=== PATIENT | female | born 1950 | race Caucasian/White ===

== ENCOUNTER 2019-10-29 13:27 | Outpatient (CLI) | payer MEDICARE, SELFPAY ==
--- NOTE | ~2019-10-29 | MR_ITS ---
EXAMINATION: MR knee LT wo con DATE: 10/29/2019 14:54 INDICATION: Left knee pain and fluid buildup TECHNIQUE: Magnetic resonance imaging (MRI) of the left knee was performed without intravenous contra st. Sequences included coronal PD-weighted FSE, coronal fluid sensitive FSE STIR, sagittal PD-weight ed FSE, sagittal fluid sensitive FSE STIR and axial fluid sensitive FSE STIR. COMPARISON: None. FINDINGS: Large region of signal loss centered at the left knee consistent with metallic magnetic field artifac t associated with a total knee arthroplasty. A guide tract is seen in the medullary space of the dist al femur. The remainder of the visualized bone marrow signal appears normal. There is a large knee riley int effusion at the suprapatellar pouch without appreciable surrounding soft tissue edema. Where not obscured the surrounding soft tissues are unremarkable. IMPRESSION: 1. Significantly limited MRI of the left knee due to artifact from a left total knee arthroplasty whi ch demonstrates a large knee joint effusion. Reviewed, dictated and finalized at location A. FER BLACK AND WHITE IMPRESSION: 1. Significantly limited MRI of the left knee due to artifact from a left total knee arthroplasty which demonstrates a large knee joint effusion.
--- NOTE | ~2019-10-29 | MR_ITS ---
EXAMINATION: MR knee RT wo con DATE: 10/29/2019 14:54 INDICATION: Right knee pain TECHNIQUE: Magnetic resonance imaging (MRI) of the right knee was performed without intravenous contr ast. Sequences included coronal PD-weighted FSE, coronal PD-weighted FS FSE, sagittal T2-weighted FS E, sagittal PD-weighted FS FSE and axial PD weighted fat saturated FSE. COMPARISON: None. FINDINGS: Large region of signal loss centered at the right knee likely related to metallic magnetic field meli fact associated with a total knee arthroplasty. A guide tract is seen in the medullary space of the d istal femur. The remainder of the visualized bone marrow signal appears normal. There is a large knee joint effusion at the suprapatellar pouch without appreciable surrounding soft tissue edema. There i s also a small Alvarez's cyst at the posteromedial aspect of the knee. Where not obscured the surroundi ng soft tissues are unremarkable. IMPRESSION: 1. Significantly limited MRI of the right knee due to artifact from a right total knee arthroplasty w [facility] demonstrates a large knee joint effusion and small Alvarez's cyst. Reviewed, dictated and finalized at location A. 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 Significantly limited MRI of the right knee due to artifact from a right tot al knee arthroplasty which demonstrates a large knee joint effusion and small B karo's cyst.
== END 2019-10-29 13:28 ==
PROVIDERS: PCP Nurse Practitioner; Visit Provider Nurse Practitioner Family
DX: M25.462 Effusion, left knee (principal); M71.21 Synovial cyst of popliteal space [Baker], right knee; Z96.651 Presence of right artificial knee joint
CPT/HCPCS: 73721

== ENCOUNTER 2020-01-09 10:37 | Outpatient (CLI) | payer MEDICARE, SELFPAY ==
--- NOTE | ~2020-01-09 | XR_ITS ---
XR lumbar spine 2-3V 01/09/2020 11:12 Indication: Low back pain Procedure: 3 views of the lumbar spine Comparison: 10/18/2018 Findings: Vertebral body heights are maintained. There is progression of mild disc narrowing at L4-5 and L5-S1. There is vacuum phenomena at L5-S1. There are moderate facet degenerative changes at L4-5 and L5-S1. There is atherosclerosis of the aorta. Impression: 1: Progression of moderate lumbar spondylosis since prior study. Reviewed, dictated and finalized at location A. Impression: 1: Progression of moderate lumbar spondylosis since prior study.
--- NOTE | ~2020-01-09 | XR_ITS ---
XR thoracic spine 2V 01/09/2020 11:12 Indication: Back pain Procedure: 2 views thoracic spine Comparison: No prior studies for comparison. Findings: The cervicothoracic junction is not adequately visualized on the lateral view, although marcella ssly abnormal on the AP view.. Mild multilevel thoracic spondylosis with accentuated kyphosis. Pedicl es intact. No paraspinal soft tissue abnormality. Mild dextrocurvature of the midthoracic spine. Impression: 1: Mild thoracic spondylosis. Reviewed, dictated and finalized at location A. Impression: 1: Mild thoracic spondylosis.
== END 2020-01-09 10:38 | disposition home or self-care (01) ==
PROVIDERS: PCP Internal Medicine; Visit Provider Nurse Practitioner Family
DX: M54.6 Pain in thoracic spine (principal); M47.814 Spondylosis without myelopathy or radiculopathy, thoracic region; M47.816 Spondylosis without myelopathy or radiculopathy, lumbar region
CPT/HCPCS: 72070; 72100

== ENCOUNTER 2020-04-09 15:58 | Outpatient (CLI) | payer MEDICARE, SELFPAY ==
--- NOTE | ~2020-04-09 | MR_ITS ---
EXAMINATION: MR lumbar spine wo con EXAM DATE: 04/09/2020 17:24 INDICATION: Chronic low back pain, right hip pain, progressing. TECHNIQUE: Multi-sequential, multiplanar MR images of the lumbar spine were obtained without contrast . Sagittal T1, T2, T2 fat saturation images. Axial T2 weighted images. Comparison is made to prior examination from 10/12/2015. FINDINGS: There is 2 mm retrolisthesis L1 on L2, L2 on L3 and L3 on L4. The conus medullaris terminat es at the L1 level and has normal signal intensity and morphology. There are no suspicious marrow si gnal abnormalities. There is mild to moderate diffuse lumbar disc disease. Paraspinal soft tissue is unremarkable. Level by level evaluation: T11-12: There is a mild to moderate diffuse disc bulge. Facet arthropathy: Mild to moderate. Neural foraminal stenosis: Mild bilateral. Central canal stenosis: Mild. T12-L1: There is a mild diffuse disc bulge. Facet arthropathy: Mild. Neural foraminal stenosis: No stenosis. Central canal stenosis: No stenosis. L1-L2: There is a mild to moderate diffuse disc bulge. Facet arthropathy: Mild. Neural foraminal stenosis: No stenosis. Central canal stenosis: No stenosis. L2-L3: There is a mild to moderate diffuse disc bulge. Facet arthropathy: Mild. Neural foraminal stenosis: No stenosis. Central canal stenosis: No stenosis. L3-L4: There is a moderate diffuse disc bulge. Facet arthropathy: Moderate. Neural foraminal stenosis: Mild to moderate bilateral. Central canal stenosis: Mild to moderate. L4-L5: There is a moderate diffuse disc bulge. Facet arthropathy: Moderate . Ligamentum flavum enlargement. Neural foraminal stenosis: Moderate bilateral, right more than left. Central canal stenosis: Moderate. L5-S1: There is a moderate diffuse disc bulge. Facet arthropathy: Moderate. Neural foraminal stenosis: Moderate bilateral, right greater than left. Central canal stenosis: Mild. Compared to 2016, there has been some interval progression in spondylosis. IMPRESSION: 1. Moderate lower lumbar spondylosis. Reviewed, dictated and finalized at location A.
== END 2020-04-09 15:59 | disposition home or self-care (01) ==
LOC: ANHIMG 15:59
PROVIDERS: PCP Internal Medicine; Visit Provider Nurse Practitioner Family
DX: M54.5 Low back pain (principal); M47.816 Spondylosis without myelopathy or radiculopathy, lumbar region
CPT/HCPCS: 72148

== ENCOUNTER 2020-05-28 13:10 | Outpatient (CLI) | payer MEDICARE, SELFPAY ==
--- NOTE | ~2020-05-28 | DEXA_ITS ---
Bone Density Report Name: Donna Cornell Age: 69 Sex: Female Ethnicity: White Date of : 1950 Indication: osteopenia; monitoring treatment; height loss; hysterectomy; Referring Provider: Hemalatha Meraz Study: Bone densitometry was performed. Exam Date: May 28, 2020 Accession number: [id number] Bone Density: Region BMD T-score Z-score Classification AP Spine (L1, L2, L3) 0.821 -1.8 0.1 Osteopenia Femoral Neck (Left) 0.855 0.1 1.7 Normal Total Hip (Left) 0.748 -1.6 -0.2 Osteopenia Total Hip Bilateral Avg 0.744 -1.7 -0.3 Osteopenia Femoral Neck (Right) 0.656 -1.7 -0.1 Osteopenia Total Hip (Right) 0.738 -1.7 -0.3 Osteopenia World Health Organization criteria for BMD impression classify patients as: Normal (T-score at or above -1.0), Osteopenia (T-score between -1.0 and -2.5), or Osteoporosis (T-score at or below -2.5). 10-year Fracture Risk: FRAX not reported because: Treated for osteoporosis Previous Exams: Region Exam Age BMD T-score BMD Change BMD Change Date g/cm2 vs Baseline vs Previous AP Spine(L1, L2, L3) 05/28/2020 69 0.821 -1.8 -0.098(-10.6%) 0.002(0.3%)# 09/28/2010 59 0.819 -1.8 -0.100(-10.9%) -0.100(-10.9%) 01/03/2008 57 0.919 -0.9 Total Hip(Left) 05/28/2020 69 0.748 -1.6 -0.130(-14.8%) 0.003(0.4%)# 09/28/2010 59 0.745 -1.6 -0.133(-15.1%) -0.133(-15.1%) 01/03/2008 57 0.878 -0.5 Total Hip(Right) 05/28/2020 69 0.738 -1.7 -0.134(-15.4%) -0.072(-8.9%)# 09/28/2010 59 0.810 -1.1 -0.062(-7.1%)* -0.062(-7.1%)* 01/03/2008 57 0.872 -0.6 *Denotes significance at 95% confidence level, LSC for AP Spine = 0.022 g/cm2, LSC for Total Hip = 0.027 g/cm2 Clinical Information Provided by Patient: Is being treated for osteoporosis Has used the following medications: Vitamin D Has the following medical conditions: Hysterectomy Patient maximum height was 68 No regular weight bearing exercise Drinks caffeinated beverages Onset of menses at age 11 Number of children 3 Impression: The patient has low bone mass, based on the Total Spine T-score. No significant bone loss was observed. Discussion: PATIENT UNDER TREATMENT WITH NO SIGNIFICANT BMD LOSS SINCE LAST EXAM. In an untreated patient, BMD typically declines with age. A lack of decline or gain is usually a sign that treatment is efficacious and fracture risk is reduced. It is important to ask patients whether they are taking their medications and to
--- NOTE | ~2020-05-28 | MM_ITS ---
EXAMINATION: MM screening blake BI w larissa HISTORY: Screening mammogram TECHNIQUE: Craniocaudal and mediolateral oblique 3-D tomosynthesis images were obtained and synthetic 2-D images were generated. CAD analysis was submitted and interpreted. COMPARISON: 01/03/2008 bilateral digital screening mammogram BREAST PARENCHYMAL COMPOSITION: There are scattered areas of fibroglandular density. FINDINGS: Scattered bilateral benign calcifications. Stable mild fibroglandular asymmetry. There is n o evidence of suspicious mass, calcification, or architectural distortion to suggest malignancy in ei ther breast. There has been no suspicious interval change. IMPRESSION: 1. No mammographic evidence of malignancy. 2. Recommend routine screening mammography in one year. BI-RADS Category 2: Benign finding(s). Reviewed, dictated and finalized at location A.
== END 2020-05-28 13:11 | disposition home or self-care (01) ==
LOC: ANHIMG 13:12
PROVIDERS: PCP Internal Medicine; Visit Provider Nurse Practitioner
DX: Z12.31 Encounter for screening mammogram for malignant neoplasm of breast (principal); Z78.0 Asymptomatic menopausal state; M85.89 Other specified disorders of bone density and structure, multiple sites
CPT/HCPCS: 77063; 77067; 77080

== ENCOUNTER 2020-06-02 12:09 | Outpatient (CLI) | payer MEDICARE, SELFPAY ==
--- NOTE | ~2020-06-02 | XR_ITS ---
EXAMINATION: XR hip LT min 2V DATE: 06/02/2020 12:29 INDICATION: Left hip pain. TECHNIQUE: 3 views of left hip were obtained. COMPARISON: Pelvis radiograph 10/18/2018 FINDINGS: Bone alignment is normal. No fracture. There is severe left hip osteoarthritis. IMPRESSION: 1. Severe left hip osteoarthritis. Reviewed, dictated and finalized at location A.
== END 2020-06-02 12:10 | disposition home or self-care (01) ==
LOC: ANHIMG 12:15
PROVIDERS: PCP Internal Medicine; Visit Provider Nurse Practitioner Family
DX: M16.12 Unilateral primary osteoarthritis, left hip (principal)
CPT/HCPCS: 73502

== ENCOUNTER 2020-12-10 10:22 | Outpatient (CLI) | payer MEDICARE, SELFPAY ==
--- NOTE | ~2020-12-10 | CT_ITS ---
EXAMINATION: CT brain wo con EXAM DATE: 12/10/2020 10:51 INDICATION: R41.3 - Other amnesia , states in surgery 1 month ago. Dizziness and lack of coordination . TECHNIQUE: Spiral CT of the head was performed without contrast. Axial, coronal and sagittal images were reviewed. The dose-length product (DLP) for this examination was 605.33 mGy-cm. The exposure w as tailored according to patient size, and iterative reconstruction (ASIR) was used as additional dos e reduction technique. There is no prior study for comparison. FINDINGS: Completely opacified right frontal and anterior ethmoid sinus is likely obstruction at the ostium. There is right maxillary sinus window procedure and mucoperiosteal thickening. This is most l ikely chronic. There is no acute intraparenchymal hemorrhage. No evidence of intraparenchymal brain mass lesion. N o evidence of acute infarction. Please note that initial head CT has limited sensitivity for small o r acute infarctions. Empty sella turcica. There is mild to moderate periventricular and subcortical h ypodensity, nonspecific but probably related to small vessel ischemic disease. There is mild to mod erate prominence of the sulci and ventricles related to cerebral atrophy. 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 There are no extra-axial collections. There is no mass effect or midline ty ft. Patient has had bilateral ocular lens surgery. Soft tissue is unremarkable. The mastoid air ce lls are well aerated. IMPRESSION: 1. No acute intracranial findings. 2. Chronic age related findings. 3. Opacified right frontal and anterior ethmoid sinuses. Reviewed, dictated and finalized at location A.
[2020-12-10 11:23] LABS: Basophils Absolute Auto 0.1 K/mm3 (0.0-0.1); Basophils Percent Auto 0.9 % (0.2-1.2); Eosinophils Absolute Auto 0.3 K/mm3 (0-0.3); Eosinophils Percent Auto 4.6 % (0-4.4); Hematocrit 35.6 % (37.0-47.0); Hemoglobin 11.3 g/dL (12.0-15.0); Immature Granulocyte Absolute 0.01 K/mm3 (0.00-0.031); Immature Granulocyte Percent A 0.2 % (0-0.5); Lymphocytes Absolute Auto 1.79 K/mm3 (0.9-3.2); Lymphocytes Percent Auto 31.9 % (18.3-44.2); Mean Corpuscular HGB Conc 31.7 g/dl (32-36); Mean Corpuscular Hemoglobin 29.7 pg (26-34); Mean Corpuscular Volume 93.4 fl (80-100); Mean Platelet Volume 9.4 fl (7.4-10.4); Monocytes Absolute Auto 0.3 K/mm3 (0.1-0.6); Monocytes Percent Auto 5.5 % (2.6-8.5); Neutrophils Absolute Auto 3.2 K/mm3 (1.3-6.7); Neutrophils Percent Auto 56.9 % (45.5-73.1); Platelet Count Result 274 k/mm3 (150-375); Red Blood Count 3.81 M/mm3 (4.2-5.4); Red Cell Distribution Width 13.7 % (11.5-14.5); White Blood Count 5.6 K/mm3 (4.5-10.0)
[2020-12-10 11:38] LABS: Alanine Aminotransferase 9 U/L (4-35); Albumin Level 4.3 g/dL (3.5-5.1); Alkaline Phosphatase 108 U/L (38-126); Anion Gap 7 mmol/L (8-16); Aspartate Amino Transferase 20 U/L (14-36); Bilirubin,Total 0.3 mg/dL (0.2-1.3); Blood Urea Nitrogen 11 mg/dL (7-17); Calcium 9.5 mg/dL (8.4-10.2); Carbon Dioxide 28 mmol/L (22-30); Chloride 105 mmol/L (98-107); Cholesterol 214 mg/dL (0-200); Estimated Glomerular Filt Rate > 60; Glucose 87 mg/dL (65-105); HDL Direct 42 mg/dL; Potassium 3.8 mmol/L (3.4-5.0); Sodium 140 mmol/L (137-145); Triglycerides 133 mg/dL (<150)
[2020-12-10 11:49] LABS: LDL Cholesterol Direct 131 mg/dL
[2020-12-10 12:42] LABS: Folic Acid 8.5 ng/mL (2.76->20)
[2020-12-10 13:29] LABS: Iron 42 ug/dL (37-170)
[2020-12-10 13:38] LABS: Percent Iron Saturation 16 % (20-50)
[2020-12-10 14:11] LABS: Vitamin D 25 Hydroxy 30.3 ng/mL
== END 2020-12-10 10:23 | disposition home or self-care (01) ==
PROVIDERS: Clinical Nurse Specialist; PCP Internal Medicine; Visit Provider Internal Medicine
DX: R41.3 Other amnesia (principal); E55.9 Vitamin D deficiency, unspecified; E61.1 Iron deficiency; I10 Essential (primary) hypertension; M06.9 Rheumatoid arthritis, unspecified
CPT/HCPCS: 36415; 70450; 80053; 80061; 82306; 82607; 82728; 82746; 83540; 83550; 84443; 85025

== ENCOUNTER 2021-05-25 15:12 | Outpatient (CLI) | payer MEDICARE, SELFPAY ==
--- NOTE | ~2021-05-25 | XR_ITS ---
EXAMINATION: XR shoulder LT min 2V DATE: 05/25/2021 15:38 INDICATION: Left shoulder pain TECHNIQUE: AP internally and externally rotated, AP oblique externally rotated and axillary views of the left shoulder were obtained. COMPARISON: None FINDINGS: Normal alignment. No fracture.Moderate osteoarthritis at the left glenohumeral joint with large deep inal osteophytes along the inferomedial aspect of the humeral head and small marginal osteophytes odell ng the anteroinferior glenoid. Mild acromioclavicular osteoarthritis. Visualized portions of the lung s are clear. Soft tissues are unremarkable. IMPRESSION: Moderate left glenohumeral and mild left acromioclavicular osteoarthritis. Reviewed, dictated and finalized at location A.
--- NOTE | ~2021-05-25 | XR_ITS ---
XR shoulder RT min 2V 05/25/2021 15:38 Indication: Bilateral shoulder pain Procedure: 4 views right shoulder Comparison: No prior studies for comparison. Findings: There are mild degenerative changes of the glenohumeral joint. There is some mild superior subluxation of the humeral head suggesting possible rotator cuff tear. Osteopenia. No acute fracture or traumatic malalignment. Impression: 1: Mild glenohumeral joint osteoarthritis. Reviewed, dictated and finalized at location A. Impression: 1: Mild glenohumeral joint osteoarthritis.
== END 2021-05-25 15:13 ==
PROVIDERS: Visit Provider Nurse Practitioner Family
DX: M19.012 Primary osteoarthritis, left shoulder (principal); M19.011 Primary osteoarthritis, right shoulder
CPT/HCPCS: 73030

== ENCOUNTER 2022-12-23 10:56 | Outpatient (CLI) | payer MEDICARE, SELFPAY ==
[2022-12-23 13:50] LABS: Basophils Percent Auto 0.6 % (0.2-1.2); Eosinophils Absolute Auto 0.2 K/mm3 (0-0.3); Eosinophils Percent Auto 3.9 % (0-4.4); Hemoglobin 13.6 g/dL (12.0-15.0); Immature Granulocyte Absolute 0.01 K/mm3 (0.00-0.031); Immature Granulocyte Percent A 0.2 % (0-0.5); Lymphocytes Percent Auto 31.5 % (18.3-44.2); Mean Corpuscular HGB Conc 31.6 g/dl (32-36); Mean Corpuscular Hemoglobin 30.2 pg (26-34); Mean Corpuscular Volume 95.6 fl (80-100); Mean Platelet Volume 9.8 fl (7.4-10.4); Monocytes Absolute Auto 0.4 K/mm3 (0.1-0.6); Monocytes Percent Auto 8.1 % (2.6-8.5); Neutrophils Absolute Auto 2.8 K/mm3 (1.3-6.7); Neutrophils Percent Auto 55.7 % (45.5-73.1); Platelet Count Result 292 k/mm3 (150-375); Red Cell Distribution Width 13.3 % (11.5-14.5); White Blood Count 5.1 K/mm3 (4.5-10.0)
[2022-12-23 14:05] LABS: Alanine Aminotransferase 20 U/L (6-35); Albumin Level 4.3 g/dL (3.5-5.1); Alkaline Phosphatase 106 U/L (38-126); Anion Gap 8 mmol/L (8-16); Aspartate Amino Transferase 35 U/L (14-36); Bilirubin,Total 0.5 mg/dL (0.2-1.3); Blood Urea Nitrogen 19 mg/dL (7-17); Calcium 8.7 mg/dL (8.4-10.2); Carbon Dioxide 27 mmol/L (22-30); Chloride 103 mmol/L (98-107); Cholesterol 171 mg/dL (0-200); Estimated Glomerular Filt Rate > 60; Glucose 85 mg/dL (65-110); HDL Direct 34 mg/dL; Potassium 4.1 mmol/L (3.4-5.0); Sodium 138 mmol/L (137-145); Triglycerides 95 mg/dL (<150)
[2022-12-23 14:16] LABS: LDL Cholesterol Direct 108 mg/dL
[2022-12-23 14:44] LABS: Vitamin D 25 Hydroxy 37.2 ng/mL
== END 2022-12-23 10:57 | disposition home or self-care (01) ==
LOC: ANHGOSHLAB 10:57
PROVIDERS: PCP Internal Medicine; Visit Provider Nurse Practitioner
DX: D64.9 Anemia, unspecified (principal); E78.5 Hyperlipidemia, unspecified
CPT/HCPCS: 36415; 80053; 80061; 82306; 85025

== ENCOUNTER 2023-02-14 13:18 | Outpatient (CLI) | payer MEDICARE, SELFPAY ==
--- NOTE | ~2023-02-14 | DEXA_ITS ---
Bone Density Report Name: MARNI MASON Age: 72 Sex: Female Ethnicity: White Date of : 1950 Indication: osteopenia; hysterectomy; postmenopausal Referring Provider: PAOLA MULLINS Study: Bone densitometry was performed. Exam Date: February 14, 2023 Accession number: [id number] Bone Density: Region BMD T-score Z-score Classification AP Spine(L1, L2, L3) 0.857 -1.5 0.6 Osteopenia Femoral Neck (Right) 0.721 -1.2 0.7 Osteopenia Total Hip (Right) 0.703 -2.0 -0.4 Osteopenia World Health Organization criteria for BMD impression classify patients as: Normal (T-score at or above -1.0), Osteopenia (T-score between -1.0 and -2.5), or Osteoporosis (T-score at or below -2.5). 10-year Fracture Risk(1): Major Osteoporotic Fracture 9.2% Hip Fracture 1.7% Reported Risk Factors: [place] (), Neck BMD=0.721, BMI=25.7, smoking (1) FRAX(R) Version 3.08. Fracture probability calculated for an untreated patient. Fracture probability may be lower if the patient has received treatment. Previous Exams: Region Exam Age BMD T-score BMD Change BMD Change Date g/cm2 vs Baseline vs Previous AP Spine (L1-L3) 02/14/2023 72 0.857 -1.5 0.036 (4.4%)# 0.036 (4.4%)# 05/28/2020 69 0.821 -1.8 Total Hip(Right) 02/14/2023 72 0.703 -2.0 -0.035 (-4.7%) -0.035 (-4.7%) 05/28/2020 69 0.738 -1.7 *Denotes significance at 95% confidence level, LSC for AP Spine = 0.022 g/cm2, LSC for Total Hip = 0.027 g/cm2 # Denotes dissimilar scan types or analysis methods Clinical Information Provided by Patient: Smokes Has the following medical conditions: Hysterectomy Patient maximum height was 66 Menopause Age: 47 Onset of menses at age 15 Number of children 3 Impression: The patient has low bone mass, based on the Right Total Hip T-score. The patient has an estimated ten-year risk of hip fracture of 1.7% and an estimated ten-year risk of major fracture of 9.2%, based on the WHO FRAX algorithm. The patient has risk factors, including: smoking. No significant bone loss was observed. Discussion: BONE DENSITY IS LOW AT ONE OR MORE SKELETAL SITES. This patient's lowest T-score is low at one or more skeletal sites. It meets the World Health Organization's (WHO) criteria for ?low bone mass? (T-score between -1.0 and -2.5). The patient's 10-year risk of fracture as calculated by FRAX is less than the threshold where pharmacological therapy is recommended by the National Osteoporosis Foundation (NOF). However, all treatment decisions require clinical j
== END 2023-02-14 13:19 | disposition home or self-care (01) ==
PROVIDERS: PCP Internal Medicine; Visit Provider Nurse Practitioner
DX: Z78.0 Asymptomatic menopausal state (principal); M85.89 Other specified disorders of bone density and structure, multiple sites
CPT/HCPCS: 77080

== ENCOUNTER 2023-02-28 15:52 | Outpatient (CLI) | payer MEDICARE, SELFPAY ==
--- NOTE | ~2023-02-28 | MM_ITS ---
EXAMINATION: MM screening blake BI w larissa HISTORY: Screening mammogram TECHNIQUE: Craniocaudal and mediolateral oblique 3-D tomosynthesis images were obtained and synthetic 2-D images were generated. CAD analysis was submitted and interpreted. COMPARISON: 05/24/2020 bilateral screening mammogram BREAST PARENCHYMAL COMPOSITION: There are scattered areas of fibroglandular density. FINDINGS: Scattered bilateral benign calcifications. Approximately 2.2 mm high density mildly irregular opacity is noted at mid depth in the outer left br east on CC projection. Diagnostic left mammogram is recommended, with ultrasound if required. Otherwise there is no evidence of suspicious mass, calcification, or architectural distortion to sugg est malignancy in either breast. There has been no other suspicious interval change. IMPRESSION: 1. Possible irregular 2.2 mm mass, outer left breast, CC projection 2. Diagnostic left mammogram is recommended, with ultrasound if required BI-RADS Category 0: Incomplete: Needs additional imaging evaluation. Reviewed, dictated and finalized at location A.
== END 2023-02-28 15:53 | disposition home or self-care (01) ==
LOC: ANHIMG 15:55
PROVIDERS: PCP Internal Medicine; Visit Provider Nurse Practitioner
DX: Z12.31 Encounter for screening mammogram for malignant neoplasm of breast (principal); N63.25 Unspecified lump in the left breast, overlapping quadrants
CPT/HCPCS: 77063; 77067

== ENCOUNTER 2023-04-04 12:10 | Outpatient (CLI) | payer MEDICARE, SELFPAY ==
--- NOTE | ~2023-04-04 | MMUS_ITS ---
EXAMINATION: MM diagnostic blake LT w larissa, US breast LT limited HISTORY: Possible irregular 2.2 mm mass in outer left breast reported on 02/28/2023 screening mammogra m TECHNIQUE: Additional 3-D tomosynthesis images of the left breast were performed and synthetic 2-D im ages were generated. Rolled medial and rolled lateral craniocaudal views of left breast. CAD analysis was submitted and interpreted. High resolution breast ultrasound was performed. COMPARISON: 02/28/2023 screening mammogram examination FINDINGS: MAMMOGRAPHIC FINDINGS: No definite reproducible mass is noted at the area in question at mid depth in the outer left breast on the CC view of 02/28/2023. This was likely a summation shadow. Ultrasound of the outer left breast was performed to confirm. ULTRASOUND: Real time imaging from 2-5 o'clock in the left breast reveals no suspicious mass or shadowing, cyst o r other significant finding. IMPRESSION: 1. No mammographic evidence of malignancy 2. Routine annual mammographic screening is recommended BI-RADS Category 1: Negative Reviewed, dictated and finalized at location A. IMPRESSION: 1. No mammographic evidence of malignancy 2. Routine annual mammographic screening is recommended BI-RADS Category 1: Negative
== END 2023-04-04 12:11 | disposition home or self-care (01) ==
PROVIDERS: PCP Internal Medicine; Visit Provider Nurse Practitioner
DX: R92.8 Other abnormal and inconclusive findings on diagnostic imaging of breast (principal)
CPT/HCPCS: 76642; 77061; 77065; G0279

== ENCOUNTER 2024-06-13 09:47 | Outpatient (CLI) | payer MEDICARE, SELFPAY ==
[2024-06-13 14:43] LABS: Basophils Absolute Auto 0.1 K/mm3 (0.0-0.1); Eosinophils Absolute Auto 0.4 K/mm3 (0-0.3); Eosinophils Percent Auto 6.2 % (0-4.4); Hematocrit 42.6 % (37.0-47.0); Hemoglobin 13.4 g/dL (12.0-15.0); Immature Granulocyte Absolute 0.02 K/mm3 (0.00-0.031); Immature Granulocyte Percent A 0.3 % (0-0.5); Lymphocytes Absolute Auto 1.42 K/mm3 (0.9-3.2); Lymphocytes Percent Auto 22.6 % (18.3-44.2); Mean Corpuscular HGB Conc 31.5 g/dl (32-36); Mean Corpuscular Volume 95.3 fl (80-100); Mean Platelet Volume 9.8 fl (7.4-10.4); Monocytes Absolute Auto 0.4 K/mm3 (0.1-0.6); Monocytes Percent Auto 5.6 % (2.6-8.5); Neutrophils Percent Auto 64.3 % (45.5-73.1); Platelet Count Result 287 k/mm3 (150-375); Red Blood Count 4.47 M/mm3 (4.2-5.4); Red Cell Distribution Width 13.2 % (11.5-14.5); White Blood Count 6.3 K/mm3 (4.5-10.0)
[2024-06-13 15:06] LABS: Alanine Aminotransferase 13 U/L (6-35); Albumin Level 4.4 g/dL (3.5-5.1); Alkaline Phosphatase 98 U/L (38-126); Anion Gap 9 mmol/L (4-12); Aspartate Amino Transferase 29 U/L (14-36); Bilirubin,Total 0.7 mg/dL (0.2-1.3); Blood Urea Nitrogen 14 mg/dL (7-17); Calcium 9.2 mg/dL (8.4-10.2); Carbon Dioxide 28 mmol/L (22-30); Chloride 102 mmol/L (98-107); Cholesterol 229 mg/dL (0-200); Estimated Glomerular Filt Rate 55; Glucose 84 mg/dL (65-110); HDL Direct 45 mg/dL; Potassium 4.6 mmol/L (3.4-5.0); Sodium 139 mmol/L (137-145); Triglycerides 125 mg/dL (<150)
[2024-06-13 15:17] LABS: LDL Cholesterol Direct 135 mg/dL
[2024-06-13 18:05] LABS: Vitamin D 25 Hydroxy 43.3 ng/mL
== END 2024-06-13 09:48 | disposition home or self-care (01) ==
LOC: ANHGOSHLAB 09:48
PROVIDERS: PCP Internal Medicine; Visit Provider Nurse Practitioner
DX: D64.9 Anemia, unspecified (principal); E78.5 Hyperlipidemia, unspecified; E55.9 Vitamin D deficiency, unspecified; I10 Essential (primary) hypertension
CPT/HCPCS: 36415; 80053; 80061; 82306; 85025

== ENCOUNTER 2024-11-01 14:13 | Outpatient (CLI) | payer MEDICARE, SELFPAY | END 2024-11-01 14:14 | disposition home or self-care (01) | LOC: ANHIMG 14:14 | PROVIDERS: PCP Internal Medicine; Visit Provider Nurse Practitioner | DX: Z12.31 Encounter for screening mammogram for malignant neoplasm of breast (principal) | CPT/HCPCS: 77063; 77067 ==

== ENCOUNTER 2025-07-18 09:02 | Outpatient (CLI) | payer MEDICARE, SELFPAY ==
--- NOTE | ~2025-07-18 | CT_ITS ---
EXAMINATION:CT lung screening DATE: 07/18/2025 09:17 INDICATION: Screening TECHNIQUE: Computed tomography (CT) of the chest was performed without intravenous contrast. The dose-length product (DLP) was 162.16 mGy-cm. COMPARISON: None. FINDINGS: 10 mm calcified granulomas appearing nodule in the left lower lobe image 52 series 4. No suspicious soft tissue nodules identified. No acute intrathoracic process. Mild ectasia of the ascending thoracic aorta measuring 3.7 cm. Heart size normal with no significant pericardial effusion. Several mediastinal lymph nodes some of which are mildly pathologic by size including 1.1 cm short axis pretracheal lymph node image 36 series 2. 1.5 cm short axis subcarinal lymph node also noted. No acute process seen in the visualized portions of the upper abdomen. Diffuse degenerative changes throughout the thoracic spine. No acute process seen in the extrathoracic soft tissues. Scattered nodular changes noted in the right breast. IMPRESSION: 1. Pathologic size mediastinal lymph nodes as above. Lymphoproliferative process including possible malignancy is not excluded. Correlate with clinical history. Lung RADS 3. Recommend follow-up low-dose lung cancer screening chest CT in 6 months. 2. Nodular changes in the right breast have a symmetric appearance compared to the left breast. Query if patient has undergone recent screening mammogram. 3. No suspicious lung nodules or acute intrathoracic process identified. Reviewed, dictated and finalized at location A. 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 Pathologic size mediastinal lymph nodes as above. Lymphoproliferative proces s including possible malignancy is not excluded. Correlate with clinical histor y. Lung RADS 3. Recommend follow-up low-dose lung cancer screening chest CT in 6 months. 2. Nodular changes in the right breast have a symmetric appearance compared to the left breast. Query if patient has undergone recent screening mammogram. 3. No suspicious lung nodules or acute intrathoracic process identified.
== END 2025-07-18 09:03 | disposition home or self-care (01) ==
LOC: MICIMG 09:02
DX: Z12.2 Encounter for screening for malignant neoplasm of respiratory organs (principal); Z87.891 Personal history of nicotine dependence
CPT/HCPCS: 71271